=== PATIENT | male | born 1995 | race Caucasian/White ===

== ENCOUNTER 2018-10-24 05:14 | Emergency (ER) | payer OTHER ==
[~2018-10-24] VITALS: Ht 167.6 cm; Wt 67.3 kg
[2018-10-24 05:18] VITALS: BP 133/102
== END 2018-10-24 06:36 | disposition home or self-care (01) ==
LOC: ER 05:15
DX: M79.641 Pain in right hand (principal)
CPT/HCPCS: 73130; 99283

== ENCOUNTER 2020-05-24 11:03 | Emergency (ER) | payer OTHER ==
[~2020-05-24] VITALS: Ht 167.6 cm; Wt 62.3 kg
[2020-05-24 11:04] VITALS: BP 156/86
[2020-05-24] MEDS ORDERED: AMOX-117 PO (11:28)
== END 2020-05-24 11:53 | disposition home or self-care (01) ==
LOC: ER 11:03
DX: S60.413A Abrasion of left middle finger, initial encounter (principal); W50.3XXA Accidental bite by another person, initial encounter; Y93.89 Activity, other specified; Y92.89 Other specified places as the place of occurrence of the external cause; Y99.9 Unspecified external cause status
CPT/HCPCS: 99283

== ENCOUNTER 2020-10-03 12:05 | Emergency (ER) | payer OTHER ==
[~2020-10-03] VITALS: Ht 167.6 cm; Wt 64.5 kg
[2020-10-03 13:10] VITALS: BP 132/86
[2020-10-03 13:37] LABS: HIV ANTIBODY 1&2 RAPID NON-REACTIVE (Neg)
[2020-10-05 11:24] LABS: HBSAG SCREEN Negative (Negative); HEP A AB, IGM Negative (Negative); HEPATITIS C ANTIBODY <0.1 s/co ratio (0.0-0.9)
== END 2020-10-03 13:54 | disposition home or self-care (01) ==
LOC: ER 12:06
DX: S69.80XA Other specified injuries of unspecified wrist, hand and finger(s), initial encounter (principal); W46.1XXA Contact with contaminated hypodermic needle, initial encounter; Y93.89 Activity, other specified; Y92.89 Other specified places as the place of occurrence of the external cause; Y99.0 Civilian activity done for income or pay
CPT/HCPCS: 36415; 86703; 86705; 86706; 86709; 86803; 87340; 99283